=== PATIENT | male | born 1955 | race African-American/Black ===

== ENCOUNTER 2017-01-25 13:16 | Inpatient (IN) | payer BC ==
[~2017-01-25] VITALS: Ht 175.3 cm; Wt 76.3 kg
--- NOTE | 2017-01-25 13:30 | NUR ---
Admit Patient admitted to medical unit room 146 from 's office. Alert and oriented. Able to stand on own without assistance. Denies chest pain. States some shortness of air with activity. Admit process started.
[2017-01-25 13:37] VITALS: Ht 175.3 cm; Wt 76.3 kg
[2017-01-25 13:47] VITALS: BP 178/113; PULSE 99; RESP 22; TEMP 97.5; O2SAT 97
[2017-01-25 13:58] VITALS: PULSE 99
[2017-01-25 14:11] LABS: BASOPHILS % (AUTO) 0.2 % (0-2); EOSINOPHILS # (AUTO) 0.1 T/MM3 (0-0.5); EOSINOPHILS % (AUTO) 1.2 % (0-4); HCT - HEMATOCRIT 35.8 % (41-53); IMMATURE GRANULOCYTE # (AUTO) 0.01 T/MM3 (0.00-0.03); IMMATURE GRANULOCYTE % (AUTO) 0.2 % (0.0-0.5); LYMPHOCYTES # (AUTO) 1.3 T/MM3 (1-4.8); LYMPHOCYTES % (AUTO) 26.2 % (23-45); MEAN CORPUSCULAR HGB 25.6 UUG (26-34); MEAN CORPUSCULAR HGB CONC(MCHC 33.5 GM/DL (31-37); MEAN CORPUSCULAR VOLUME 76.5 UM3 (80-100); MONOCYTES # (AUTO) 0.5 T/MM3 (0-0.8); MONOCYTES % (AUTO) 9.6 % (0-9.0); NEUTROPHILS % (AUTO) 62.6 % (33-66); RED BLOOD COUNT 4.68 M/MM3 (4.50-5.90); WBC - WHITE BLOOD COUNT 4.8 T/MM3 (4.5-11.0)
--- NOTE | 2017-01-25 14:20 | DI ---
INDICATION: ITS.REASON: Pulmonary edema PROCEDURE: CHEST 2-VIEWS UPRIGHT (PA \T\ LAT) Encounter: Initial COMPARISON: None FINDINGS: Interstitial edema seen in the perihilar regions of both lungs. No focal consolidative pneumonia. Trace pleural effusions. No pneumothorax. The cardiac silhouette is mildly enlarged. Mediastinal contours are within normal limits. Overlying monitoring leads. Impression: Mild to moderate pulmonary edema. .
[2017-01-25 14:21] LABS: ALBUMIN/GLOBULIN RATIO 1.5 RATIO (1.1-2.2); ALKALINE PHOSPHATASE 146 U/L (38-126); ALT (SGPT) 106 U/L (21-72); ANION GAP 14 MEQ/L (5-15); AST (SGOT) 40 U/L (17-59); BUN/CREATININE RATIO 9 RATIO (6-26); CALCIUM 9.2 MG/DL (8.4-10.2); CHLORIDE 107 MEQ/L (98-107); CO2 - CARBON DIOXIDE 25 MEQ/L (22-30); CREATININE 1.6 MG/DL (0.8-1.5); GLOMERULAR FILTRATION RATE 44; GLUCOSE 119 MG/DL (75-110); MAGNESIUM 2.2 MG/DL (1.6-2.3); POTASSIUM 3.4 MEQ/L (3.6-5); SODIUM 146 MEQ/L (134-144); TOTAL PROTEIN 6.6 G/DL (6.3-8.2)
[2017-01-25] MEDS ORDERED: FUROSEMIDE 100 MG/10 ML INJECTION IV ONE (14:45)
[2017-01-25] MEDS ORDERED: POTASSIUM CHLORIDE 20 MEQ TABLET PO ONE ×2 (14:45→17:30)
[2017-01-25 14:51] LABS: THYROID STIM HORMONE-TSH 1.31 MIU/L (0.47-4.68)
[2017-01-25 15:24] VITALS: PULSE 99; RESP 16; O2SAT 97
--- NOTE | 2017-01-25 15:32 | HPPDOC ---
MARIA ISABEL VELASCO V WAGON WASHER 01/25/17 1516: HPI - Adult Date DATE: 01/25/17 TIME: 15:09 General Chief Complaint: dyspnea History of Present Illness Mr Dunlap is a 61 yr old gentleman who has been having increased shortness of breath since the middle of December. He had been seen by primary care provider on December 17 and completed a full course of Augmentin for upper respiratory infection. However, symptoms have not improved. He presented back to see his primary care provider, Dr. Dey today reporting increased shortness of breath , especially with lying down. As report increased coughing and wheezing at intermittently. Patient has a history of hypertension and was present previously taking hydrochlorothiazide, Norvasc and metoprolol. However, he reports he has not taken any of these medications recently. Outpatient laboratory studies were obtained including troponin of 0.017, proBNP 8010. A chest x-ray was obtained that did reveal moderate pulmonary edema and cardiomegaly. Given these findings, accompanied with his symptoms and uncontrolled hypertension. The hospitalist services were contacted and accepted patient for direct admission as an inpatient for further evaluation and treatment. He is alert, orientated and pleasant during initial examination. He admits to increased shortness of breath for a month . It is progressively getting worse, especially at night. 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 We did discuss advance directives and he does wish to be a Full Code Past Medical History Past Medical History Hypertension Surgical History Patient's Surgical History: Denies surgical hx Current Medications Home Meds No Active Prescriptions or Reported Meds Allergies: Coded Allergies: No Known Allergies (Unverified , 09/08/10) Family History Family History: Father-lung cancer Mother-hypertension, heart disease, diabetes Multiple siblings with diabetes Social History Smoking Status: Never smoker Substance Use Type: does not use Alcohol Intake: none Current Occupational Status: employed ([employer] plant) Advance Directives: Yes Full Code, No DPOA for Healthcare Only Social History Comments PCP Dr Dey Review of Systems Cardiovascular dyspnea on exertion, orthopnea Pulmonary Respiratory: cough, dyspnea All Other Systems All Other Systems: Reviewed (remainder of 10-point ROS Neg.) Physical Exam General Vital Signs Vital Signs Date Time Temp Pulse Resp B/P Pulse Ox O2 Delivery O2 Flow Rate FiO2 01/25/17 13:58 99 01/25/17 13:47 97.5 22 178/113 97 Room Air Height (Feet): 5 Height (Inches): 9.00 Eyes Brief: FOUND: EOMI ENMT Brief: FOUND: mucosa moist, normal dentition, NOT FOUND: pharnyx erythema Neck Brief: FOUND: JVD, midline, NOT FOUND: adenopathy, carotid bruits, tracheal deviation Respiratory Brief: NOT FOUND: wheezes Comments Diminished bilateral bases Cardiovascular (brief) Cardiac Brief: FOUND: pedal edema (trace bilateral), regular rate, regular rhythm, NOT FOUND: murmur Abdomen (brief) Abdominal Brief: FOUND: BS normo active x4, soft, NOT FOUND: distended, tender Integumentary (brief) Integumentary Brief: FOUND: dry, pink, warm Neurologic (brief) Neurological Brief: FOUND: cranial 2-12 intact, motor Neurologic RN Documented GCS Eye Opening: Verbal: Motor: Total: Psychiatric (brief) FOUND: alert, attentive, normal affect, oriented Laboratory Laboratory Tests Test 01/25/17 13:44 White Blood Count 4.8T/MM3 Red Blood Count 4.68M/MM3 Hemoglobin 12.0GM/DL Hematocrit 35.8% Mean Corpuscular Volume 76.5UM3 Mean Corpuscular Hemoglobin 25.6UUG Mean Corpuscular Hemoglobin Concent 33.5GM/DL RDW Standard Deviation 40.8FL Platelet Count 257T/MM3 Mean Platelet Volume 12.0UM3 Immature Granulocyte % (Auto) 0.2% Neutrophils (%) (Auto) 62.6% Lymphocytes (%) (Auto) 26.2% Monocytes (%) (Auto) 9.6% Eosinophils (%) (Auto) 1.2% Basophils (%) (Auto) 0.2% Absolute Immature Granulocyte (auto 0.01T/MM3 Absolute Neutrophils (auto) 3.0T/MM3 Absolute Lymphocytes (auto) 1.3T/MM3 Absolute Monocytes (auto) 0.5T/MM3 Absolute Eosinophils (auto) 0.1T/MM3 Absolute Basophils (auto) 0.0T/MM3 Turbidity < 20 Sodium Level 146MEQ/L Potassium Level 3.4MEQ/L Chloride Level 107MEQ/L Carbon Dioxide Level 25MEQ/L Anion Gap 14MEQ/L Blood Urea Nitrogen 14.0MG/DL Creatinine 1.6MG/DL Glomerular Filtration Rate Calc 44 BUN/Creatinine Ratio 9RATIO Glucose Level 119MG/DL Calculated Osmolality 283MOSM/KG Calcium Level 9.2MG/DL Magnesium Level 2.2MG/DL Total Bilirubin 1.50MG/DL Icterus Index < 2 Aspartate Amino Transf (AST/SGOT) 40U/L Alanine Aminotransferase (ALT/SGPT) 106U/L Alkaline Phosphatase 146U/L Total Protein 6.6G/DL Albumin 4.0G/DL Globulin 2.6G/DL Albumin/Globulin Ratio 1.5RATIO Thyroid Stimulating Hormone (TSH) 1.31MIU/L Chemistry Specimen Hemolysis < 15 Assessment & Plan Problems: (1) Pulmonary edema Status: Acute Qualifiers: Chronicity: acute Qualified Codes: J81.0 - Acute pulmonary edema (2) Hypernatremia Status: Acute (3) Uncontrolled hypertension Status: Acute Assessment & Plan: Present on admission (4) Hypokalemia Status: Acute Assessment & Plan: Present on admission (5) Cardiomegaly Status: Chronic Plan/Intensity of Service Admit patient as a inpatient given new onset pulmonary edema with uncontrolled hypertension and cardiomegaly Will obtain the following laboratory studies on admission. CBC, CMP, magnesium, TSH, urinalysis, HgbA1C, Iron and ferritin. will monitor patient on cardiac telemetry. Patient placed to Dr. Monroe for further cardiac evaluation and treatment. Will obtain an echocardiogram mission. Diet- sodium restricted 2 grams Will give Lasix 60 mg IV once on admission along with potassium 20 MEQ now. Then give additional 20 MEQ again at 1730. Resume hypertension medications including lisinopril, Coreg Monitor daily weights SCDs to Bilateral lower ext for DVT prophylaxis. Again, we did review advanced records and patient does wish to be a full code At time of discharge medical care will return to his primary care provider, Dr. Dey Code Status Full Code, unverified Hospital Course Summary Disclaimer The hospital course summary below is not to be considered part of the above Progress Note. Hospital Course Summary Admit patient as a inpatient given new onset pulmonary edema with uncontrolled hypertension and cardiomegaly Will obtain the following laboratory studies on admission. CBC, CMP, magnesium, TSH, urinalysis, Iron and ferritin. will monitor patient on cardiac telemetry. Patient placed to Dr. Monroe for further cardiac evaluation and treatment. Will obtain an echocardiogram mission. Diet- sodium restricted 2 grams Will give Lasix 60 mg IV once on admission along with potassium 20 MEQ now. Then give additional 20 MEQ again at 1730. Resume hypertension medications including lisinopril, Coreg Monitor daily weights SCDs to Bilateral lower ext for DVT prophylaxis. Again, we did review advanced records and patient does wish to be a full code At time of discharge medical care will return to his primary care provider, ROMELIA Ramos MD 01/25/17 1636: Past Medical History Current Medications Home Meds No Active Prescriptions or Reported Meds Allergies: Coded Allergies: No Known Allergies (Unverified , 09/08/10) Assessment & Plan Problems: (1) Pulmonary edema Status: Acute Qualifiers: Chronicity: acute Qualified Codes: J81.0 - Acute pulmonary edema (2) Cardiomyopathy Status: Acute Qualifiers: Cardiomyopathy type: unspecified Qualified Codes: I42.9 - Cardiomyopathy, unspecified (3) Cardiomegaly Status: Chronic (4) Uncontrolled hypertension Status: Acute Assessment & Plan: Present on admission (5) Hypernatremia Status: Acute (6) Hypokalemia Status: Acute Assessment & Plan: Present on admission (7) Elevated liver enzymes Status: Acute Assessment & Plan: ? passive liver congestion due to CHF (8) Anemia Status: Acute Plan/Intensity of Service Have independently interviewed and examined pt. Chart reviewed. Case discussed with Dr Dey and my WAGON WASHER. Care plan developed with my supervision; agree with above. CC: Difficulty breathing. HPI: 61 y/o male presents to clinic for evaluation of dyspnea. Has been SOA since December - seen in clinic and treated from bronchial symptoms but no improvement with treatments initiated. SOA with activities. Not able to lay flat at night to sleep as becomes SOA. Denies increase LE edema. No recent viral syndrome. Denies chest pressure, pain, or palpitations. Has cough, nonproductive. No n/v, but appetite decreased. Stools stable, no diarrhea or constipation. No blood in stool or tarry dark sticky stools. Long standing HTN, but not been adherent with medications. Not currently on any BP medications. Lungs: decreased, scattered crackles CV: regular with GOLDY AB: soft nt/nd +BS Ext: trace LE edema MSE: awake alert appropriate Plan: Inpatient admission for further evaluation and treatment of his pulmonary edema and cardiomegaly-anticipate greater than 2 midnights of care needed. ECHO to assess LVEF and valve function. Lasix to help motivate fluid. Replace potassium. Start Coreg and lisinopril as suspect Decreased EF. Cardiology consult due to new onset of CHF. SCD for DVT prevention. Check Iron and Ferritin due to microcytic anemia. Monitor lab due to diuretics and medications. DVT Prophylaxis: SCD'S MARIA ISABEL VELASCO APRN January 25, 2017 15:16 ROMELIA VASQUEZ MD January 25, 2017 16:36
--- NOTE | 2017-01-25 16:05 | CONSPD ---
Consultation Info Date DATE: 01/25/17 TIME: 15:51 Date of Consultation: January 25, 2017 Attending Physician: Santhosh Weir MD Reason for Consultation: Cardiomegaly, uncontrolled HTN HPI - Adult Date DATE: 01/25/17 TIME: 15:51 General Date of Admission Date of Admission: January 25, 2017 at 13:16 Chief Complaint: dyspnea History of Present Illness Mr Dunlap is a 61 yr old gentleman who has been having increased shortness of breath since the middle of December. He had been seen by primary care provider on December 17 and completed a full course of Augmentin for upper respiratory infection. However, symptoms have not improved. He presented back to see his primary care provider, Dr. Dey today reporting increased shortness of breath , especially with lying down. As report increased coughing and wheezing intermittently. He has a history of hypertension and was previously taking hydrochlorothiazide, Norvasc and metoprolol. However, he reports he has not taken any of these medications recently. Outpatient laboratory studies were obtained including troponin of 0.017, proBNP 8010. A chest x-ray was obtained that did reveal moderate pulmonary edema and cardiomegaly. Given these findings , accompanied with his symptoms and uncontrolled hypertension. The hospitalist services were contacted and accepted patient for direct admission as an inpatient for further evaluation and treatment. Dr. Monroe is consulted for evaluation of Cardiomegaly. He is examined in his room on Medical. He denies recent fever, chills, N/V/D. He denies chest pain, pressure or tightness. States his dyspnea is worse on exertion and when laying flat. Past Medical History Past Medical History Metabolic: hypertension, DENIES: diabetes, hypercholesterolemia Cardiac: DENIES: A-fib, CAD, CHF, RI, PSVT, angina Respiratory: DENIES: COPD, asthma Neurological: DENIES: CVA Surgical History Cardiac: DENIES: cardiac bypass, cardiac cath, cardiac stent, pacemaker, radio ablation, valve replacement Current Medications Home Meds No Active Prescriptions or Reported Meds Allergies: Coded Allergies: No Known Allergies (Unverified , 09/08/10) Family History FOUND: RI (brother), cancer (father), diabetes (mother), hypertension Vaccines No Social History Smoking Status: Never smoker Substance Use Type: does not use Alcohol Intake: occasionally Marital Status: Sexuality: female partner 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) Advance Directives: Yes Full Code, No DPOA for Healthcare Only Review of Systems Constitutional: DENIES: chills, dizziness, fatigue, fever, syncope, weakness Eyes Vision: DENIES: vision changes ENMT Hearing: DENIES: tinnitus Balance: DENIES: vertigo Sinuses: NOT FOUND: rhinorrhea Mouth/Throat: DENIES: sore throat Cardiovascular dyspnea on exertion, orthopnea, paroxysmal nocturnal dysp, DENIES: chest pain, murmur Rhythm/Rate: DENIES: irregular beat, palpitations, tachycardia Vascular: DENIES: pedal edema Pulmonary Respiratory: cough GI Upper Abdomen: DENIES: nausea, vomiting Lower Abdomen: DENIES: diarrhea General: DENIES: dysuria Integumentary Skin: DENIES: rash, sores Neurological General: DENIES: headache, numbness, syncope, weakness All Other Systems All Other Systems: Reviewed (remainder of 10-point ROS Neg.) Physical Exam General General Nourishment: well nourished, well developed, apparent age Vital Signs Vital Signs Date Time Temp Pulse Resp B/P Pulse Ox O2 Delivery O2 Flow Rate FiO2 01/25/17 15:24 99 16 97 Room Air 01/25/17 13:47 97.5 178/113 Height (Feet): 5 Height (Inches): 9.00 Telemetry Rhythm: Sinus Rhythm Telemetry Ectopy: PVC ENMT Brief: FOUND: mucosa moist Neck Brief: FOUND: JVD, NOT FOUND: carotid bruits Respiratory Brief: FOUND: clear all harper, equal bilaterally, NOT FOUND: rales , wheezes Cardiovascular (brief) Cardiac Brief: FOUND: regular rate, regular rhythm, NOT FOUND: click, gallop, murmur, pedal edema Abdomen (brief) Abdominal Brief: FOUND: BS normo active x4, soft, NOT FOUND: tender Neurologic RN Documented GCS Eye Opening: Verbal: Motor: Total: Psychiatric (brief) FOUND: alert, attentive, normal affect, oriented Laboratory Laboratory Tests Test 01/25/17 13:44 White Blood Count 4.8T/MM3 Red Blood Count 4.68M/MM3 Hemoglobin 12.0GM/DL Hematocrit 35.8% Mean Corpuscular Volume 76.5UM3 Mean Corpuscular Hemoglobin 25.6UUG Mean Corpuscular Hemoglobin Concent 33.5GM/DL RDW Standard Deviation 40.8FL Platelet Count 257T/MM3 Mean Platelet Volume 12.0UM3 Immature Granulocyte % (Auto) 0.2% Neutrophils (%) (Auto) 62.6% Lymphocytes (%) (Auto) 26.2% Monocytes (%) (Auto) 9.6% Eosinophils (%) (Auto) 1.2% Basophils (%) (Auto) 0.2% Absolute Immature Granulocyte (auto 0.01T/MM3 Absolute Neutrophils (auto) 3.0T/MM3 Absolute Lymphocytes (auto) 1.3T/MM3 Absolute Monocytes (auto) 0.5T/MM3 Absolute Eosinophils (auto) 0.1T/MM3 Absolute Basophils (auto) 0.0T/MM3 Turbidity < 20 Sodium Level 146MEQ/L Potassium Level 3.4MEQ/L Chloride Level 107MEQ/L Carbon Dioxide Level 25MEQ/L Anion Gap 14MEQ/L Blood Urea Nitrogen 14.0MG/DL Creatinine 1.6MG/DL Glomerular Filtration Rate Calc 44 BUN/Creatinine Ratio 9RATIO Glucose Level 119MG/DL Calculated Osmolality 283MOSM/KG Calcium Level 9.2MG/DL Magnesium Level 2.2MG/DL Total Bilirubin 1.50MG/DL Icterus Index < 2 Aspartate Amino Transf (AST/SGOT) 40U/L Alanine Aminotransferase (ALT/SGPT) 106U/L Alkaline Phosphatase 146U/L Total Protein 6.6G/DL Albumin 4.0G/DL Globulin 2.6G/DL Albumin/Globulin Ratio 1.5RATIO Thyroid Stimulating Hormone (TSH) 1.31MIU/L Chemistry Specimen Hemolysis < 15 Laboratory Tests Test 01/25/17 13:44 White Blood Count 4.8T/MM3 Red Blood Count 4.68M/MM3 Hemoglobin 12.0GM/DL Hematocrit 35.8% Mean Corpuscular Volume 76.5UM3 Mean Corpuscular Hemoglobin 25.6UUG Mean Corpuscular Hemoglobin Concent 33.5GM/DL RDW Standard Deviation 40.8FL Platelet Count 257T/MM3 Mean Platelet Volume 12.0UM3 Immature Granulocyte % (Auto) 0.2% Neutrophils (%) (Auto) 62.6% Lymphocytes (%) (Auto) 26.2% Monocytes (%) (Auto) 9.6% Eosinophils (%) (Auto) 1.2% Basophils (%) (Auto) 0.2% Absolute Immature Granulocyte (auto 0.01T/MM3 Absolute Neutrophils (auto) 3.0T/MM3 Absolute Lymphocytes (auto) 1.3T/MM3 Absolute Monocytes (auto) 0.5T/MM3 Absolute Eosinophils (auto) 0.1T/MM3 Absolute Basophils (auto) 0.0T/MM3 Turbidity < 20 Sodium Level 146MEQ/L Potassium Level 3.4MEQ/L Chloride Level 107MEQ/L Carbon Dioxide Level 25MEQ/L Anion Gap 14MEQ/L Blood Urea Nitrogen 14.0MG/DL Creatinine 1.6MG/DL Glomerular Filtration Rate Calc 44 BUN/Creatinine Ratio 9RATIO Glucose Level 119MG/DL Calculated Osmolality 283MOSM/KG Calcium Level 9.2MG/DL Magnesium Level 2.2MG/DL Total Bilirubin 1.50MG/DL Icterus Index < 2 Aspartate Amino Transf (AST/SGOT) 40U/L Alanine Aminotransferase (ALT/SGPT) 106U/L Alkaline Phosphatase 146U/L Total Protein 6.6G/DL Albumin 4.0G/DL Globulin 2.6G/DL Albumin/Globulin Ratio 1.5RATIO Thyroid Stimulating Hormone (TSH) 1.31MIU/L Chemistry Specimen Hemolysis < 15 Radiology DATE OF EXAM: 01/25/17 ORDERING DOCTOR: SANTHOSH WEIR MD TYPE OF EXAM: CHEST, PA & LATERAL REASON FOR EXAM: Pulmonary edema INDICATION: ITS.REASON: Pulmonary edema PROCEDURE: CHEST 2-VIEWS UPRIGHT (PA \T\ LAT) Encounter: Initial COMPARISON: None FINDINGS: Interstitial edema seen in the perihilar regions of both lungs. No focal consolidative pneumonia. Trace pleural effusions. No pneumothorax. The cardiac silhouette is mildly enlarged. Mediastinal contours are within normal limits. Overlying monitoring leads. Impression: Mild to moderate pulmonary edema. Impression/Recommendation Problems: (1) Cardiomyopathy Status: Acute Assessment & Plan: EF 15% per echo, moderate to severe MR and TR. Needs diuresis and LifeVest. (2) Pulmonary edema Status: Acute Assessment & Plan: Agree with diuresis. Bumex 2mg IV Q6H. (3) Uncontrolled hypertension Status: Acute Assessment & Plan: Agree with BB, Change Lisinopril to Entresto. (4) Cardiomegaly Status: Chronic Assessment & Plan: EF 15% per echo, moderate to severe MR and TR. Needs diuresis and LifeVest. Recommendation Pulm.edema: Agree with diuresis. Bumex 2mg IV Q6H. HTN:Agree with BB, Change Lisinopril to Entresto. Cardiomegaly/ Cardiomyopathy: EF 15% per echo, moderate to severe MR and TR. Needs diuresis and LifeVest. Thank you for allowing us to participate in the care of this patient. MICHAEL BRICEÑO APRN January 25, 2017 15:56
[2017-01-25] MEDS ORDERED: NITROGLYCERIN 0.4 MG SUBLINGUAL TABLET SL PRN (16:15)
[2017-01-25] MEDS ORDERED: MAG-AL + SIM LIQUID 30 ML UDC PO PRN (16:15)
[2017-01-25] MEDS ORDERED: PRN ORDERS MC (16:15)
[2017-01-25] MEDS ORDERED: ONDANSETRON 4mg/2ml INJECTION IV PRN (16:15)
[2017-01-25] MEDS ORDERED: MILK OF MAGNESIA 30 ML SUSP PO PRN (16:15)
[2017-01-25] MEDS ORDERED: ACETAMINOPHEN 325 MG TABLET PO PRN (16:15)
[2017-01-25] MEDS ORDERED: BISACODYL 10 MG SUPPOSITORY RECTALLY PRN (16:15)
[2017-01-25] MEDS: CARVEDILOL 3.125 MG TABLET PO SCH (17:17)
[2017-01-25] MEDS: ENOXAPARIN 40 MG/0.4 ML INJECTION SQ SCH (18:26)
[2017-01-25] MEDS: POTASSIUM CHLORIDE 20 MEQ TABLET PO SCH (18:27)
--- NOTE | 2017-01-25 18:38 | NUR ---
SUMMARY PATIENT ALERT AND ORIENTED X3. VSS. ON RA. DENIES PAIN, N/V/D. UP AD KUSH IN ROOM. SIGNIFICANT URINE OUTPUT AFTER LASIX GIVEN. SEVERAL VOIDS UNMEASURED BECAUSE PATIENT FORGOT TO USE URINAL. SCD'S IN PLACE WHILE IN BED. ADEQUATE ORAL INTAKE. IVL RIGHT FOREARM. FAMILY PRESENT AT BEDSIDE.
[2017-01-25] MEDS ORDERED: FUROSEMIDE 40 MG/4 ML INJECTION IV ONE (19:00)
[2017-01-25 20:00] VITALS: PULSE 99; RESP 16
[2017-01-25] MEDS: BUMETANIDE 1 MG/4 ML INJECTION IV SCH (21:00)
[2017-01-25] MEDS ORDERED: LISINOPRIL 5 MG TABLET PO SCH (22:00)
[2017-01-25 23:43] VITALS: BP 128/83; PULSE 85; RESP 24; TEMP 98; O2SAT 92
[2017-01-26] MEDS: BUMETANIDE 1 MG/4 ML INJECTION IV SCH (03:47)
--- NOTE | 2017-01-26 05:05 | NUR ---
SHIFT SUMMARY PT A/O X 3, PLEASANT AND COOPERATIVE WITH CARES. UP AT KUSH. NO VOIDS WERE MEASURED BECAUSE THE PT FORGOT TO USE THE URINAL. PT STATED HE DID VOID 4 TIMES. DENIES PAIN, SOA OR CHEST PAIN. IV SITE INTACT AND FLUSHED WITHOUT DIFFICULT.
[2017-01-26 05:19] LABS: BASOPHILS % (AUTO) 0.5 % (0-2); EOSINOPHILS # (AUTO) 0.2 T/MM3 (0-0.5); EOSINOPHILS % (AUTO) 3.7 % (0-4); HCT - HEMATOCRIT 35.9 % (41-53); HGB - HEMOGLOBIN 12.2 GM/DL (13.5-17.5); LYMPHOCYTES # (AUTO) 1.5 T/MM3 (1-4.8); LYMPHOCYTES % (AUTO) 35.9 % (23-45); MEAN CORPUSCULAR HGB 25.8 UUG (26-34); MEAN CORPUSCULAR VOLUME 76.1 UM3 (80-100); MEAN PLATELET VOLUME 12.1 UM3 (9.4-12.4); MONOCYTES # (AUTO) 0.5 T/MM3 (0-0.8); MONOCYTES % (AUTO) 10.5 % (0-9.0); NEUTROPHILS #(AUTO)-ABSOLUTE 2.1 T/MM3 (1.8-7.7); NEUTROPHILS % (AUTO) 49.4 % (33-66); RED BLOOD COUNT 4.72 M/MM3 (4.50-5.90); WBC - WHITE BLOOD COUNT 4.3 T/MM3 (4.5-11.0)
[2017-01-26 05:28] LABS: ANION GAP 13 MEQ/L (5-15); BUN/CREATININE RATIO 11 RATIO (6-26); CALCIUM 8.9 MG/DL (8.4-10.2); CHLORIDE 106 MEQ/L (98-107); CO2 - CARBON DIOXIDE 26 MEQ/L (22-30); CREATININE 1.7 MG/DL (0.8-1.5); GLOMERULAR FILTRATION RATE 41; GLUCOSE 112 MG/DL (75-110); MAGNESIUM 2.1 MG/DL (1.6-2.3); POTASSIUM 3.4 MEQ/L (3.6-5); SODIUM 145 MEQ/L (134-144)
[2017-01-26 08:01] VITALS: BP 143/92; PULSE 83; RESP 28; TEMP 97.7; O2SAT 96
[2017-01-26 08:04] VITALS: RESP 28
--- NOTE | 2017-01-26 08:07 | NUR ---
STATUS PT ALERT AND ORIENTED. VITALS OBTAINED AND STABLE CHARTED WITH RESPIRATIONS NOTED TO BE 28/MINUTE. PT REPORTS BEING SHORT OF BREATH ON ADMIT BUT STATES HE FEELS BETTER TODAY, DENIES SHORTNESS OF BREATH AT THIS TIME. O2 SAT 96% ROOM AIR. PT DENIES PAIN OR ANY CHEST DISCOMFORT. PT ORDERS BREAKFAST. WILL CONTINUE TO MONITOR.
[2017-01-26] MEDS ORDERED: FUROSEMIDE 40 MG/4 ML INJECTION IV SCH (09:00)
[2017-01-26] MEDS: BUMETANIDE 2.5mg INJECTION IV SCH ×3 (09:15→17:15)
[2017-01-26] MEDS: POTASSIUM CHLORIDE 20 MEQ TABLET PO SCH ×3 (09:15→17:16)
[2017-01-26] MEDS: CARVEDILOL 3.125 MG TABLET PO SCH ×2 (09:15→17:16)
[2017-01-26] MEDS: ENOXAPARIN 40 MG/0.4 ML INJECTION SQ SCH (09:16)
--- NOTE | 2017-01-26 09:34 | ECHOF ---
DATE OF PROCEDURE 01/25/[address] Jersey Dey INDICATIONS This is a two-dimensional echo with spectral Doppler, color-flow, and M-mode. It was obtained in a patient with hypertension. DESCRIPTION OF PROCEDURE Left atrium is dilated. Left ventricular end-diastolic dimension is increased. Left ventricular wall thickness is increased. LV systolic function is reduced with global hypokinesia with ejection fraction of about 15%. Right atrium is dilated. Right ventricle is normal. Aortic root dimension is normal. Mitral valve is morphologically normal with severe mitral regurgitation. Aortic valve is a trileaflet structure with no stenosis. There is no aortic insufficiency. Tricuspid valve shows [id number] tricuspid regurgitation with mzngyeig-mn-mzybtd pulmonary hypertension with estimated pulmonary artery systolic pressure of 66. Pulmonary valve shows mild pulmonary insufficiency. There is trace of pericardial effusion with no echocardiographic evidence of tamponade. IMPRESSION 1. Global hypokinesia with ejection fraction of 15%. 2. Concentric left ventricular hypertrophy. 3. Biatrial dilation. 4. Left ventricular dilation. 5. Mild pulmonary insufficiency. 6. Severe mitral regurgitation. 7. [id number] tricuspid regurgitation with gioddwio-[id number] pulmonary hypertension with estimated pulmonary artery systolic pressure of 66. 8. Trace of pericardial effusion with no echocardiographic evidence of tamponade. MTDD
--- NOTE | 2017-01-26 11:16 | PNPDOC ---
Subjective Date DATE: 01/26/17 TIME: 11:02 Subjective F/U: Acute systolic HF, Severe cardiomyopathy Doing better. Breathing feels easier-less SOA. No chest pressure, pain, or palpitations. Not feeling dizzy or unsteady when up. Slept well at night. No nausea or ab pain. Eating well. No swelling to legs. Urinating well. Objective Vital Signs Vital signs Vital Signs Date Time Temp Pulse Resp B/P Pulse Ox O2 Delivery O2 Flow Rate FiO2 01/26/17 08:04 28 01/26/17 08:01 97.7 83 143/92 96 Room Air Telemetry Rhythm: Sinus Rhythm Telemetry Ectopy: PVC Height (Feet): 5 Height (Inches): 9.00 Weight (Kilograms): 76.400 General General Appearance: Alert, Orientated x 3, Well Nourished, Well Developed, Cooperative, Looks Stated Age Eyes (Brief) Eyes: FOUND: EOMI, PERRL, NOT FOUND: scleral icterus ENMT (Brief) ENMT: FOUND: hearing intact, mucosa moist Neck (Brief) Neck: FOUND: midline, NOT FOUND: JVD, nuchal rigidity, spasm Respiratory (Brief) Respiratory: FOUND: clear all harper, equal bilaterally, other (No distress on RA ), NOT FOUND: rales, wheezes Cardiovascular (Brief) Cardiac: FOUND: regular rate, regular rhythm, NOT FOUND: pedal edema Abdomen (Brief) Abdominal: FOUND: BS normo active x4, soft, NOT FOUND: distended, tender Extremities (Brief) Extremity : Side: Bilateral Extremity: leg Extremity Finding: NOT FOUND: edema Musculoskeletal (Brief) Musculoskeletal: FOUND: extremities move equally, NOT FOUND: deformity, loss of motion, spasm, tenderness Integumentary (Brief) Integumentary: FOUND: dry, warm Neurologic (Brief) Neurological: FOUND: cranial 2-12 intact, motor (Intact ) Psychiatric (Brief) Psychiatric: FOUND: alert, attentive, normal affect, oriented Laboratory Laboratory Laboratory Tests 01/25/17 13:44 01/26/17 04:24 Laboratory Tests 01/25/17 13:44 01/26/17 04:24 Assessment & Plan Problems: (1) Systolic heart failure Status: Acute Qualifiers: Heart failure chronicity: acute Qualified Codes: I50.21 - Acute systolic ( congestive) heart failure Assessment & Plan: EF 15% (2) Cardiomyopathy Status: Acute Qualifiers: Cardiomyopathy type: unspecified Qualified Codes: I42.9 - Cardiomyopathy, unspecified (3) Pulmonary edema Status: Acute Qualifiers: Chronicity: acute Qualified Codes: J81.0 - Acute pulmonary edema (4) Cardiomegaly Status: Chronic (5) Uncontrolled hypertension Status: Acute Assessment & Plan: Present on admission (6) Hypernatremia Status: Acute Assessment & Plan: POA (7) Hypokalemia Status: Acute Assessment & Plan: Present on admission (8) Elevated liver enzymes Status: Acute Assessment & Plan: ? passive liver congestion due to CHF (9) Anemia Status: Acute Plan/Intensity of Service Will continue Bumex 2mg IV q 6 hours - monitor for overdiuresis. Start Spironolactone 25mg daily due to hypokalemia and depressed EF. Entresto started BID by cardilolgy due to severe heart failure - lisinopril stopped due to ARB component. Continue with Coreg 3.125mg BID. Cardiology looking into Life Vest secondary to severely decreased EF. Recheck CMP in am to monitor renal and electrolyte status. CBC in am due to anemia. Time spent with pt care 25 minutes, discussing HF and treatments. DVT Prophylaxis: Lovenox Code Status Full Code, unverified Hospital Course Summary Disclaimer The hospital course summary below is not to be considered part of the above Progress Note. Hospital Course Summary 01/25 Admit patient as a inpatient given new onset pulmonary edema with uncontrolled hypertension and cardiomegaly Will obtain the following laboratory studies on admission. CBC, CMP, magnesium, TSH, urinalysis, Iron and ferritin. will monitor patient on cardiac telemetry. Patient placed to Dr. Monroe for further cardiac evaluation and treatment. Will obtain an echocardiogram mission. Diet- sodium restricted 2 grams Will give Lasix 60 mg IV once on admission along with potassium 20 MEQ now. Then give additional 20 MEQ again at 1730. Resume hypertension medications including lisinopril, Coreg Monitor daily weights SCDs to Bilateral lower ext for DVT prophylaxis. Again, we did review advanced records and patient does wish to be a full code At time of discharge medical care will return to his primary care provider, Dr. Dey 01/26 Doing better. Breathing feels easier-less SOA. No chest pressure, pain, or palpitations. Not feeling dizzy or unsteady when up. Slept well at night. No nausea or ab pain. Eating well. No swelling to legs. Urinating well. Creatinine stable at 1.7. Urine output increasing with Bumex. Will continue Bumex 2mg IV q 6 hours - monitor for overdiuresis. Start Spironolactone 25mg daily due to hypokalemia and depressed EF. Entresto started BID by cardilolgy due to severe heart failure - lisinopril stopped due to ARB component. Continue with Coreg 3.125mg BID. Cardiology looking into Life Vest secondary to severely decreased EF. Recheck CMP in am to monitor renal and electrolyte status. CBC in am due to anemia. ROMELIA VASQUEZ MD January 26, 2017 11:05
[2017-01-26] MEDS: SPIRONOLACTONE 25 MG TABLET PO SCH (12:35)
[2017-01-26 12:37] VITALS: BP 122/86; PULSE 79
--- NOTE | 2017-01-26 13:46 | NUR ---
CM CM IN TO VISIT PT. CM EXPLAINED ROLE AND PROVIDED CONTACT INFORMATION. PT DENIES NEEDS AND IS AWARE TO CALL CM SHOULD NEEDS ARISE.
--- NOTE | 2017-01-26 14:47 | PNPDOC ---
Subjective Date DATE: 01/26/17 TIME: 14:44 Subjective feeling better today. Can breathe better Objective Vital Signs Vital signs Vital Signs 01/26/17 01/26/17 01/26/17 08:01 08:04 12:37 Temp 97.7 Pulse 83 79 Resp 28 28 B/P 143/92 122/86 Pulse Ox 96 O2 Delivery Room Air Telemetry Rhythm: Sinus Rhythm Telemetry Ectopy: PVC Height (Feet): 5 Height (Inches): 9.00 Weight (Kilograms): 76.400 General Alert, Orientated x 3 Neck (Brief) NOT FOUND: JVD Respiratory (Brief) clear all harper, equal bilaterally Cardiovascular (Brief) regular rate, regular rhythm, NOT FOUND: pedal edema Abdomen (Brief) soft Extremities (Brief) Extremity : Extremity Finding: NOT FOUND: edema Musculoskeletal (Brief) NOT FOUND: tenderness Integumentary (Brief) dry, pink, warm Psychiatric (Brief) alert, attentive, normal affect, oriented Laboratory Laboratory Laboratory Tests 01/26/17 04:24 Laboratory Tests 01/26/17 04:24 Medications Current Medications Carvedilol (Coreg) 3.125 mg BIDWM PO Last administered on 01/26/17t 09:15; Start 01/25/17 at 17:30 Lisinopril (Prinivil) 5 mg HS PO ; Start 01/25/17 at 22:00; Stop 01/25/17 at 22: 00; Status DC Miscellaneous Medication (May use PRN orders) PRN PRN MC ; Start 01/25/17 at 16:15 Magnesium Hydroxide (Mom) 30 ml DAILY PRN PO CONSTIPATION; Start 01/25/17 at 16 :15 Bisacodyl (Dulcolax) 10 mg DAILY PRN RECTALLY CONSTIPATION; Start 01/25/17 at 16:15 Al Hydroxide/Mg Hydroxide (Maalox) 30 ml Q3H PRN PO INDIGESTION; Start at 16:15 Acetaminophen (Tylenol Regular Strength) 1-2 TABS PO Q5H PRN PO DISCOMFORT; Start 01/25/17 at 16:15 Nitroglycerin (Nitrostat) 0.4 mg Q5M PRN SL CHEST PAIN; Start 01/25/17 at 16:15 Ondansetron HCl (Zofran) 4 mg Q6H PRN IV NAUSEA; Start 01/25/17 at 16:15 Furosemide (Lasix) 40 mg BID. IV ; Start 01/26/17 at 09:00; Stop 01/26/17 at 09: 00; Status DC Sacubitril/ Valsartan (ENTRESTO 24mg/ 26mg) 1 tab BID PO Last administered on 09:16; Start 01/25/17 at 21:00 Bumetanide (BUMEX INJ 1 mg/ 4 ml) 2 mg Q6H IV Last administered on 01/26/17 03 :47; Start 01/25/17 at 21:00; Stop 01/26/17 at 08:41; Status DC Potassium Chloride (Kdur) 20 meq TIDWM PO Last administered on 01/26/17 12:35 ; Start 01/25/17 at 17:45 Enoxaparin Sodium (Lovenox) 40 mg DAILY SQ Last administered on 01/26/17 09:16 ; Start 01/25/17 at 17:45 Bumetanide (Bumex Inj. 2.5 Mg/10 ml) 2 mg Q6H IV Last administered on 09:15; Start 01/26/17 at 08:45 Spironolactone (Aldactone) 25 mg DAILY PO Last administered on 01/26/17 12:35 ; Start 01/26/17 at 11:00 Assessment & Plan Problems: (1) Cardiomyopathy Status: Acute Qualifiers: Cardiomyopathy type: unspecified Qualified Codes: I42.9 - Cardiomyopathy, unspecified Assessment & Plan: EF 15% per echo, moderate to severe MR and TR. Needs diuresis and LifeVest. (2) Pulmonary edema Status: Acute Qualifiers: Chronicity: acute Qualified Codes: J81.0 - Acute pulmonary edema Assessment & Plan: Agree with diuresis. Bumex 2mg IV Q6H. (3) Uncontrolled hypertension Status: Acute Assessment & Plan: Agree with BB, Change Lisinopril to Entresto. (4) Cardiomegaly Status: Chronic Assessment & Plan: EF 15% per echo, moderate to severe MR and TR. Needs diuresis and LifeVest. Assessment Pulm.edema: Agree with diuresis. Bumex 2mg IV Q6H. HTN:Agree with BB, Change Lisinopril to Entresto. Cardiomegaly/ Cardiomyopathy: EF 15% per echo, moderate to severe MR and TR. Needs diuresis and LifeVest. 01-26-17 States he is breathing better. CXR ordered. Continue IV bumex. Thank you for allowing us to participate in the care of this patient. JEISON BOYCE COATER OPERATOR INSULATION BOARD January 26, 2017 14:47
[2017-01-26 15:19] LABS: ALBUMIN 3.9 G/DL (3.5-5.0); ALBUMIN/GLOBULIN RATIO 1.6 RATIO (1.1-2.2); ALKALINE PHOSPHATASE 126 U/L (38-126); ALT (SGPT) 85 U/L (21-72); ANION GAP 12 MEQ/L (5-15); AST (SGOT) 29 U/L (17-59); BUN/CREATININE RATIO 11 RATIO (6-26); CALCIUM 9.2 MG/DL (8.4-10.2); CHLORIDE 102 MEQ/L (98-107); CO2 - CARBON DIOXIDE 30 MEQ/L (22-30); CREATININE 1.7 MG/DL (0.8-1.5); GLOMERULAR FILTRATION RATE 41; GLUCOSE 94 MG/DL (75-110); MAGNESIUM 2.1 MG/DL (1.6-2.3); POTASSIUM 3.7 MEQ/L (3.6-5); SODIUM 144 MEQ/L (134-144); TOTAL PROTEIN 6.4 G/DL (6.3-8.2)
[2017-01-26 15:36] VITALS: BP 120/87; PULSE 82; RESP 17; TEMP 98; O2SAT 95
--- NOTE | 2017-01-26 15:54 | NUR ---
Life Vest [employer] calls that pt is approved for a life vest and that they will be here on 01/27 at approximately 1100 to bring life vest and educate pt. This information is given to the pt. Pt also informed that if he wants family here for the education as well that is fine. Pt verbalizes understanding.
[2017-01-26 17:17] VITALS: BP 129/91; PULSE 80
[2017-01-26 18:11] VITALS: BP 135/91; PULSE 81
--- NOTE | 2017-01-26 18:18 | NUR ---
V TACH PT HAS 19 BEAT RUN OF V TACH. PT DENIES C/O'S. DENIES ANY INCREASED SHORTNESS OF BREATH, CHEST DISCOMFORT, OR DIZZINESS. BP 135/91. HR IN THE 80'S. THIS IS REPORTED TO Liam BOYCE APRN, ALONG WITH CURRENT LABS. NEW ORDER TO BE IMPLEMENTED. WILL CONTINUE TO MONITOR.
[2017-01-26] MEDS ORDERED: POTASSIUM CHLORIDE 20 MEQ TABLET PO ONE (18:30)
[2017-01-26] MEDS ORDERED: CARVEDILOL 3.125 MG TABLET PO ONE (18:45)
--- NOTE | 2017-01-26 18:52 | NUR ---
STATUS PT SITTING UP IN CHAIR. VISITORS PRESENT. VITALS STABLE. NO CONCERNS AT THIS TIME.
[2017-01-27 01:07] VITALS: BP 112/65; PULSE 72; RESP 20; TEMP 97.4; O2SAT 94
[2017-01-27] MEDS: BUMETANIDE 2.5mg INJECTION IV SCH ×3 (01:14→17:49)
[2017-01-27 05:18] LABS: BASOPHILS % (AUTO) 0.8 % (0-2); EOSINOPHILS # (AUTO) 0.1 T/MM3 (0-0.5); EOSINOPHILS % (AUTO) 3.3 % (0-4); HGB - HEMOGLOBIN 13.6 GM/DL (13.5-17.5); IMMATURE GRANULOCYTE # (AUTO) 0.01 T/MM3 (0.00-0.03); IMMATURE GRANULOCYTE % (AUTO) 0.3 % (0.0-0.5); LYMPHOCYTES # (AUTO) 1.5 T/MM3 (1-4.8); LYMPHOCYTES % (AUTO) 40.3 % (23-45); MEAN CORPUSCULAR HGB 25.6 UUG (26-34); MEAN CORPUSCULAR VOLUME 75.2 UM3 (80-100); MONOCYTES # (AUTO) 0.5 T/MM3 (0-0.8); MONOCYTES % (AUTO) 13.1 % (0-9.0); NEUTROPHILS #(AUTO)-ABSOLUTE 1.6 T/MM3 (1.8-7.7); NEUTROPHILS % (AUTO) 42.2 % (33-66); RED BLOOD COUNT 5.32 M/MM3 (4.50-5.90); WBC - WHITE BLOOD COUNT 3.7 T/MM3 (4.5-11.0)
[2017-01-27 05:30] LABS: ALBUMIN 3.8 G/DL (3.5-5.0); ALBUMIN/GLOBULIN RATIO 1.6 RATIO (1.1-2.2); ALKALINE PHOSPHATASE 135 U/L (38-126); ALT (SGPT) 85 U/L (21-72); ANION GAP 13 MEQ/L (5-15); AST (SGOT) 27 U/L (17-59); BUN/CREATININE RATIO 13 RATIO (6-26); CALCIUM 9.1 MG/DL (8.4-10.2); CHLORIDE 103 MEQ/L (98-107); CO2 - CARBON DIOXIDE 27 MEQ/L (22-30); CREATININE 1.6 MG/DL (0.8-1.5); GLOMERULAR FILTRATION RATE 44; GLUCOSE 104 MG/DL (75-110); POTASSIUM 3.5 MEQ/L (3.6-5); SODIUM 143 MEQ/L (134-144); TOTAL PROTEIN 6.2 G/DL (6.3-8.2)
[2017-01-27 08:00] VITALS: PULSE 79
[2017-01-27 08:08] LABS: BLOOD, URINE NEGATIVE (NEGATIVE); COLOR,URINE YELLOW (YELLOW); LEUKOCYTE ESTERASE ,URINE NEGATIVE (NEGATIVE); NITRITE,URINE NEGATIVE (NEGATIVE); UROBILINOGEN,URINE 0.2 EU/DL (NORMAL)
[2017-01-27 08:17] LABS: BACTERIA,URINE NONE SEEN (NEGATIVE); RBC,URINE 0-1 /HPF (0-3); SQUAMOUS EPITHELIAL CELL,UR NONE SEEN; WBC,URINE 0-1 /HPF (0-5)
--- NOTE | 2017-01-27 08:25 | NUR ---
SHIFT REPORT PATIENT IS ALERT AND ORIENTED X3 THIS SHIFT. VITAL SIGNS HAVE BEEN STABLE ON ROOM AIR. PATIENT IS UP AT [facility]. PATIENT USING URINAL. UA COLLECTED AND SENT TO LAB THIS AM. PATIENT EXPECTED TO BE FIT FOR LIFE VEST THIS AM. CARE TRANSFERRED TO FIRST SHIFT RN. Addendum: 01/27/17 at 0830 by JIM BENAVIDEZ RN PATIENT REPORTED THAT SHORTNESS OF AIR WAS IMPROVING. HE DENIED ANY PAIN, NAUSEA, AND VOMITING.
[2017-01-27 08:44] VITALS: BP 140/89; PULSE 73; RESP 20; TEMP 96.7; O2SAT 99
--- NOTE | 2017-01-27 09:16 | DI ---
Indication: ITS.REASON: chf PROCEDURE: CHEST 1 VIEW: Encounter: Initial Comparison: January 25, 2017 Findings: Pulmonary edema has improved with decreasing pulmonary vascular congestion and perihilar interstitial prominence. No new infiltrates. Small pleural effusions. No pneumothorax. Heart size and mediastinal contours are stable. Impression: Improving congestive failure with minimal edema remaining. .
[2017-01-27] MEDS: POTASSIUM CHLORIDE 20 MEQ TABLET PO SCH ×3 (09:31→17:50)
[2017-01-27] MEDS: CARVEDILOL 6.25 MG TABLET PO SCH ×2 (09:31→17:49)
[2017-01-27] MEDS: ENOXAPARIN 40 MG/0.4 ML INJECTION SQ SCH (09:32)
[2017-01-27] MEDS: SPIRONOLACTONE 25 MG TABLET PO SCH (09:33)
--- NOTE | 2017-01-27 11:50 | PNPDOC ---
Subjective Date DATE: 01/27/17 TIME: 11:44 Subjective F/U: Acute systolic HF, Severe cardiomyopathy Doing better. Breathing easier-less SOA and congested. Still with dry cough. No chest pressure/pain. Not feeling dizzy or unsteady with positional changes. No nausea or ab discomfort. Stools stable. Urinating well. Objective Vital Signs Vital signs Vital Signs Date Time Temp Pulse Resp B/P Pulse Ox O2 Delivery O2 Flow Rate FiO2 01/27/17 08:44 96.7 73 20 140/89 99 Room Air Telemetry Rhythm: Sinus Rhythm Telemetry Ectopy: PVC Height (Feet): 5 Height (Inches): 9.00 Weight (Kilograms): 74.600 General General Appearance: Alert, Orientated x 3, Well Nourished, Well Developed, Cooperative, Looks Stated Age Eyes (Brief) Eyes: FOUND: EOMI, PERRL, NOT FOUND: scleral icterus ENMT (Brief) ENMT: FOUND: hearing intact, mucosa moist Neck (Brief) Neck: FOUND: midline, NOT FOUND: nuchal rigidity, spasm Respiratory (Brief) Respiratory: FOUND: clear all harper (Decreased bilaterally ), other (Cough with forced expriation ), NOT FOUND: rales, wheezes Cardiovascular (Brief) Cardiac: FOUND: regular rate, regular rhythm, NOT FOUND: pedal edema Abdomen (Brief) Abdominal: FOUND: BS normo active x4, soft, NOT FOUND: distended, tender Extremities (Brief) Extremity : Side: Bilateral Extremity: leg Extremity Finding: NOT FOUND: edema Musculoskeletal (Brief) Musculoskeletal: FOUND: extremities move equally, NOT FOUND: deformity, loss of motion, spasm, tenderness Integumentary (Brief) Integumentary: FOUND: dry, warm Neurologic (Brief) Neurological: FOUND: cranial 2-12 intact, motor (Intact ) Psychiatric (Brief) Psychiatric: FOUND: alert, attentive, normal affect, oriented Laboratory Laboratory Laboratory Tests 01/25/17 13:44 01/26/17 04:24 01/26/17 14:58 01/27/17 04:44 Laboratory Tests 01/25/17 13:44 01/26/17 04:24 01/27/17 04:44 Assessment & Plan Problems: (1) Systolic heart failure Status: Acute Qualifiers: Heart failure chronicity: acute Qualified Codes: I50.21 - Acute systolic ( congestive) heart failure Assessment & Plan: EF 15% (2) Cardiomyopathy Status: Acute Qualifiers: Cardiomyopathy type: unspecified Qualified Codes: I42.9 - Cardiomyopathy, unspecified (3) Pulmonary edema Status: Acute Qualifiers: Chronicity: acute Qualified Codes: J81.0 - Acute pulmonary edema (4) Cardiomegaly Status: Chronic (5) Uncontrolled hypertension Status: Acute Assessment & Plan: Present on admission (6) Hypernatremia Status: Resolved Assessment & Plan: POA (7) Hypokalemia Status: Acute Assessment & Plan: Present on admission (8) Elevated liver enzymes Status: Acute Assessment & Plan: ? passive liver congestion due to CHF (9) Stage III chronic kidney disease (10) Anemia Status: Acute Plan/Intensity of Service Being fitted for Life Vest. Continue Bumex for diuresis - cardiology decreased to 2mg IV q 8 hours yesterday - monitor for overdiuresis. Start Spironolactone 25mg daily due to hypokalemia and depressed EF. Entresto started BID by cardilolgy due to severe heart failure - lisinopril stopped due to ARB component. Cardiology increased Coreg 6.25mg BID. Encouraged sodium and fluid restriction - discussed with patient. Will have nursing provide CHF education information. Recheck CMP in am to monitor renal and electrolyte status. CBC in am due to anemia. Time spent with pt care 25 minutes, discussing HF and treatments. DVT Prophylaxis: Lovenox Code Status Full Code, unverified Hospital Course Summary Disclaimer The hospital course summary below is not to be considered part of the above Progress Note. Hospital Course Summary 01/25 Admit patient as a inpatient given new onset pulmonary edema with uncontrolled hypertension and cardiomegaly Will obtain the following laboratory studies on admission. CBC, CMP, magnesium, TSH, urinalysis, Iron and ferritin. will monitor patient on cardiac telemetry. Patient placed to Dr. Monroe for further cardiac evaluation and treatment. Will obtain an echocardiogram mission. Diet- sodium restricted 2 grams Will give Lasix 60 mg IV once on admission along with potassium 20 MEQ now. Then give additional 20 MEQ again at 1730. Resume hypertension medications including lisinopril, Coreg Monitor daily weights SCDs to Bilateral lower ext for DVT prophylaxis. Again, we did review advanced records and patient does wish to be a full code At time of discharge medical care will return to his primary care provider, Dr. Dey 01/26 Doing better. Breathing feels easier-less SOA. No chest pressure, pain, or palpitations. Not feeling dizzy or unsteady when up. Slept well at night. No nausea or ab pain. Eating well. No swelling to legs. Urinating well. Creatinine stable at 1.7. Urine output increasing with Bumex. Will continue Bumex 2mg IV q 6 hours - monitor for overdiuresis. Start Spironolactone 25mg daily due to hypokalemia and depressed EF. Entresto started BID by cardilolgy due to severe heart failure - lisinopril stopped due to ARB component. Continue with Coreg 3.125mg BID. Cardiology looking into Life Vest secondary to severely decreased EF. Recheck CMP in am to monitor renal and electrolyte status. CBC in am due to anemia. 01/27 Doing better. Breathing easier-less SOA and congested. Still with dry cough. No chest pressure/pain. Not feeling dizzy or unsteady with positional changes. No nausea or ab discomfort. Stools stable. Urinating well. Being fitted for Life Vest. Continue Bumex for diuresis - cardiology decreased to 2mg IV q 8 hours yesterday - monitor for overdiuresis. Start Spironolactone 25mg daily due to hypokalemia and depressed EF. Entresto started BID by cardilolgy due to severe heart failure - lisinopril stopped due to ARB component. Cardiology increased Coreg 6.25mg BID. Encouraged sodium and fluid restriction - discussed with patient. Will have nursing provide CHF education information. Recheck CMP in am to monitor renal and electrolyte status. CBC in am due to anemia. ROMELIA VASQUEZ MD January 27, 2017 11:47
[2017-01-27 12:33] VITALS: BP 115/77; PULSE 81; O2SAT 98
--- NOTE | 2017-01-27 12:50 | NUR ---
son at bedside and stated his dad isnt right. Pt doesnt know where he is why he is here asked what is wrong with him does recognize son doest remeber where he worked states he was dreaming but askes whrer he is over and over . vs taken and are stable Has life vest is on asks what it is for states let me go back to sleep and wake up i was dreaming. Dr Weir notified.
[2017-01-27 15:18] VITALS: BP 115/71; PULSE 80; RESP 18; TEMP 96.2; O2SAT 98
--- NOTE | 2017-01-27 18:56 | NUR ---
shift status Patient is now alert and orientated much better than eariler assement. Life vest is on was fitted for it today tlele is sr sl depressed t wave.
[2017-01-27 20:11] VITALS: BP 109/74; PULSE 84; RESP 20; TEMP 97.1; O2SAT 97
--- NOTE | 2017-01-27 22:10 | NUR ---
Shift note Pt. up ad golden in the room. Denies pain or needs at this time.
[2017-01-28] MEDS: BUMETANIDE 2.5mg INJECTION IV SCH ×2 (00:05→09:12)
[2017-01-28 00:14] VITALS: BP 111/72; PULSE 81; RESP 16; TEMP 96.5; O2SAT 97
[2017-01-28 01:43] LABS: IRON 42 UG/DL (49-181)
[2017-01-28 02:19] LABS: FERRITIN 121 NG/ML (18-464)
[2017-01-28 06:10] LABS: BASOPHILS % (AUTO) 0.7 % (0-2); EOSINOPHILS # (AUTO) 0.1 T/MM3 (0-0.5); EOSINOPHILS % (AUTO) 3.4 % (0-4); HCT - HEMATOCRIT 40.1 % (41-53); HGB - HEMOGLOBIN 13.8 GM/DL (13.5-17.5); LYMPHOCYTES # (AUTO) 1.9 T/MM3 (1-4.8); LYMPHOCYTES % (AUTO) 44.5 % (23-45); MEAN CORPUSCULAR HGB 25.6 UUG (26-34); MEAN CORPUSCULAR HGB CONC(MCHC 34.4 GM/DL (31-37); MEAN CORPUSCULAR VOLUME 74.3 UM3 (80-100); MEAN PLATELET VOLUME 11.9 UM3 (9.4-12.4); MONOCYTES # (AUTO) 0.6 T/MM3 (0-0.8); MONOCYTES % (AUTO) 14.4 % (0-9.0); NEUTROPHILS #(AUTO)-ABSOLUTE 1.5 T/MM3 (1.8-7.7); WBC - WHITE BLOOD COUNT 4.2 T/MM3 (4.5-11.0)
[2017-01-28 06:12] LABS: ALBUMIN 3.7 G/DL (3.5-5.0); ALBUMIN/GLOBULIN RATIO 1.4 RATIO (1.1-2.2); ALKALINE PHOSPHATASE 122 U/L (38-126); ALT (SGPT) 87 U/L (21-72); ANION GAP 12 MEQ/L (5-15); AST (SGOT) 34 U/L (17-59); BUN/CREATININE RATIO 14 RATIO (6-26); CALCIUM 8.8 MG/DL (8.4-10.2); CHLORIDE 102 MEQ/L (98-107); CO2 - CARBON DIOXIDE 30 MEQ/L (22-30); CREATININE 1.6 MG/DL (0.8-1.5); GLOMERULAR FILTRATION RATE 44; GLUCOSE 107 MG/DL (75-110); MAGNESIUM 2.1 MG/DL (1.6-2.3); SODIUM 144 MEQ/L (134-144); TOTAL PROTEIN 6.3 G/DL (6.3-8.2)
--- NOTE | 2017-01-28 06:14 | NUR ---
Shift Note Slept well overnight. Denies pain or needs at this time.
[2017-01-28 07:25] VITALS: BP 99/73; PULSE 80; RESP 16; TEMP 96.9; O2SAT 99
[2017-01-28] MEDS: ENOXAPARIN 40 MG/0.4 ML INJECTION SQ SCH (09:11)
[2017-01-28] MEDS: CARVEDILOL 6.25 MG TABLET PO SCH ×2 (09:12→16:25)
[2017-01-28] MEDS: SPIRONOLACTONE 25 MG TABLET PO SCH (09:12)
[2017-01-28] MEDS: POTASSIUM CHLORIDE 20 MEQ TABLET PO SCH ×3 (09:13→16:24)
--- NOTE | 2017-01-28 10:37 | DI ---
INDICATION: ITS.REASON: F/U Pulm edema PROCEDURE: CHEST 2-VIEWS UPRIGHT (PA \T\ LAT) Encounter: Initial COMPARISON: January 26, 2017 FINDINGS: The lungs are clear without evidence of focal abnormal airspace opacity. There is no pleural effusion or pneumothorax. Prior pulmonary edema has resolved. The heart size, mediastinal contours and pulmonary vascularity are within normal limits. IMPRESSION: No acute cardiopulmonary disease. .
--- NOTE | 2017-01-28 16:11 | NUR ---
status Pt A/O x3, V/S stable on RA. Pt ambulating well in room, denies SOA or dizziness. Eating well, remains on Na restricted diet plus fluid restriction, pt understands why. Life vest remains on, pt denies any shocks from vest, denies C.P. . Urine output good, no BM today.
--- NOTE | 2017-01-28 16:12 | PNPDOC ---
Subjective Date DATE: 01/28/17 TIME: 16:01 Subjective Pt doing well this am, denies any sob, n/v/d, f/c. Reports that he is getting a heart cath tomorrow. Objective Vital Signs Vital signs Vital Signs Date Time Temp Pulse Resp B/P Pulse Ox O2 Delivery O2 Flow Rate FiO2 01/28/17 07:25 96.9 80 16 99/73 99 Room Air Telemetry Rhythm: Sinus Rhythm Telemetry Ectopy: PVC Height (Feet): 5 Height (Inches): 9.00 Weight (Kilograms): 76.200 General General Appearance: Alert, Orientated x 3 Eyes (Brief) Eyes: FOUND: EOMI, PERRL ENMT (Brief) ENMT: FOUND: mucosa moist Neck (Brief) Neck: NOT FOUND: nuchal rigidity, tenderness Respiratory (Brief) Respiratory: FOUND: clear all harper, equal bilaterally, NOT FOUND: wheezes Cardiovascular (Brief) Cardiac: FOUND: regular rate, regular rhythm, NOT FOUND: murmur Abdomen (Brief) Abdominal: FOUND: soft, NOT FOUND: distended, tender Extremities (Brief) Extremity : Extremity Finding: NOT FOUND: clubbing, cyanosis, edema Integumentary (Brief) Integumentary: FOUND: dry, NOT FOUND: rash Laboratory Laboratory Laboratory Tests 01/27/17 04:44 01/28/17 05:14 Laboratory Tests 01/27/17 04:44 01/28/17 05:14 Assessment & Plan Problems: (1) Systolic heart failure Status: Acute Qualifiers: Heart failure chronicity: acute Qualified Codes: I50.21 - Acute systolic ( congestive) heart failure Assessment & Plan: EF 15% (2) Cardiomyopathy Status: Acute Qualifiers: Cardiomyopathy type: unspecified Qualified Codes: I42.9 - Cardiomyopathy, unspecified (3) Pulmonary edema Status: Acute Qualifiers: Chronicity: acute Qualified Codes: J81.0 - Acute pulmonary edema (4) Cardiomegaly Status: Chronic (5) Uncontrolled hypertension Status: Acute Assessment & Plan: Present on admission (6) Hypernatremia Status: Resolved Assessment & Plan: POA (7) Hypokalemia Status: Acute Assessment & Plan: Present on admission (8) Elevated liver enzymes Status: Acute Assessment & Plan: ? passive liver congestion due to CHF (9) Stage III chronic kidney disease (10) Anemia Status: Acute Assessment HFrEF -Ischemic disease vs. longstanding HTN -Echo shows 15% EF -On Entresto, carvedilol, bumex, spironolactone, life vest -Will start statin -Cards following, Cath tomorrow? HTN -Entresto, carvedilol -Monitor CKD/ELEANOR? -Cr 1.6, has been stable since admission -Likely CKD, UA showed proteinuria, will get renal sono Ppx -DVT-lovenox Plan/Intensity of Service Being fitted for Life Vest. Continue Bumex for diuresis - cardiology decreased to 2mg IV q 8 hours yesterday - monitor for overdiuresis. Start Spironolactone 25mg daily due to hypokalemia and depressed EF. Entresto started BID by cardilolgy due to severe heart failure - lisinopril stopped due to ARB component. Cardiology increased Coreg 6.25mg BID. Encouraged sodium and fluid restriction - discussed with patient. Will have nursing provide CHF education information. Recheck CMP in am to monitor renal and electrolyte status. CBC in am due to anemia. Time spent with pt care 25 minutes, discussing HF and treatments. Code Status Full Code, unverified Hospital Course Summary Disclaimer The hospital course summary below is not to be considered part of the above Progress Note. Hospital Course Summary 01/25 Admit patient as a inpatient given new onset pulmonary edema with uncontrolled hypertension and cardiomegaly Will obtain the following laboratory studies on admission. CBC, CMP, magnesium, TSH, urinalysis, Iron and ferritin. will monitor patient on cardiac telemetry. Patient placed to Dr. Monroe for further cardiac evaluation and treatment. Will obtain an echocardiogram mission. Diet- sodium restricted 2 grams Will give Lasix 60 mg IV once on admission along with potassium 20 MEQ now. Then give additional 20 MEQ again at 1730. Resume hypertension medications including lisinopril, Coreg Monitor daily weights SCDs to Bilateral lower ext for DVT prophylaxis. Again, we did review advanced records and patient does wish to be a full code At time of discharge medical care will return to his primary care provider, Dr. Dey 01/26 Doing better. Breathing feels easier-less SOA. No chest pressure, pain, or palpitations. Not feeling dizzy or unsteady when up. Slept well at night. No nausea or ab pain. Eating well. No swelling to legs. Urinating well. Creatinine stable at 1.7. Urine output increasing with Bumex. Will continue Bumex 2mg IV q 6 hours - monitor for overdiuresis. Start Spironolactone 25mg daily due to hypokalemia and depressed EF. Entresto started BID by cardilolgy due to severe heart failure - lisinopril stopped due to ARB component. Continue with Coreg 3.125mg BID. Cardiology looking into Life Vest secondary to severely decreased EF. Recheck CMP in am to monitor renal and electrolyte status. CBC in am due to anemia. 01/27 Doing better. Breathing easier-less SOA and congested. Still with dry cough. No chest pressure/pain. Not feeling dizzy or unsteady with positional changes. No nausea or ab discomfort. Stools stable. Urinating well. Being fitted for Life Vest. Continue Bumex for diuresis - cardiology decreased to 2mg IV q 8 hours yesterday - monitor for overdiuresis. Start Spironolactone 25mg daily due to hypokalemia and depressed EF. Entresto started BID by cardilolgy due to severe heart failure - lisinopril stopped due to ARB component. Cardiology increased Coreg 6.25mg BID. Encouraged sodium and fluid restriction - discussed with patient. Will have nursing provide CHF education information. Recheck CMP in am to monitor renal and electrolyte status. CBC in am due to anemia. 01/28 Pt doing well, maximizing CHF meds, pt reports heart cath is planned for tomorrow. FLY JO MD January 28, 2017 16:11
[2017-01-28 16:20] VITALS: BP 109/71; PULSE 76; RESP 16; TEMP 96.3; O2SAT 100
[2017-01-28] MEDS: BUMETANIDE 1 MG TABLET PO SCH (16:24)
[2017-01-28 16:30] VITALS: PULSE 76
--- NOTE | 2017-01-28 17:58 | NUR ---
SUMMARY Pt alert and oriented x3. Nurse reported stable vital signs on RA. Pt ambulating well in room. Pt denied SOA or dizziness. Eating well and on Na restricted diet plus fluid restriction. Pt is a very nice person. Pt wears a life vest. Call light within reach.
--- NOTE | 2017-01-28 21:30 | NUR ---
comfort watches TV most of evening. Denies pain, ambulates in room with good balance
[2017-01-28] MEDS ORDERED: ATORVASTATIN 40 MG TABLET PO SCH (22:00)
[2017-01-29] VITALS: BP 115/69; PULSE 71; RESP 16; TEMP 97.3; O2SAT 100
[2017-01-29 01:48] LABS: LDL CHOLESTEROL,CALCULATED 64.4 (66-159); RISK FACTOR 2.3 RATIO (0-5.0); VLDL CHOLESTEROL 15.6 MG/DL (0-28)
--- NOTE | 2017-01-29 06:15 | NUR ---
rest sleeps for long intervals, resp. unlabored. Repositions self for comfort. NPO tonight for testing
[2017-01-29 07:17] VITALS: BP 123/81; PULSE 81; RESP 16; TEMP 97.3; O2SAT 97
[2017-01-29 08:00] VITALS: PULSE 81
[2017-01-29] MEDS: ENOXAPARIN 40 MG/0.4 ML INJECTION SQ SCH (08:07)
[2017-01-29] MEDS: CARVEDILOL 6.25 MG TABLET PO SCH (08:07)
[2017-01-29] MEDS: BUMETANIDE 1 MG TABLET PO SCH (08:08)
[2017-01-29] MEDS: POTASSIUM CHLORIDE 20 MEQ TABLET PO SCH ×2 (08:08→12:10)
[2017-01-29] MEDS: SPIRONOLACTONE 25 MG TABLET PO SCH (08:09)
[2017-01-29 08:39] LABS: ALBUMIN 3.7 G/DL (3.5-5.0); ANION GAP 12 MEQ/L (5-15); BUN/CREATININE RATIO 16 RATIO (6-26); CALCIUM 9.2 MG/DL (8.4-10.2); CHLORIDE 103 MEQ/L (98-107); CO2 - CARBON DIOXIDE 29 MEQ/L (22-30); CREATININE 1.5 MG/DL (0.8-1.5); GLOMERULAR FILTRATION RATE 48; GLUCOSE 110 MG/DL (75-110); POTASSIUM 4.5 MEQ/L (3.6-5); SODIUM 144 MEQ/L (134-144)
[2017-01-29 09:06] LABS: PHOSPHORUS 3.6 MG/DL (2.5-4.5)
--- NOTE | 2017-01-29 10:25 | NUR ---
MNT r/t low Na, Cardiac diet Diet: 2 g Na Pt states that he likes to eat salty food: fried potatoes, chips and fast food. Rd gave rationale for avoiding high sodium foods and gave list of high-sodium foods (ADA). Reviewed low-sodium, heart healthy food options. Pt states that he does not like other seasonings (i.e. onion, hot peppers, herbs) so RD suggested that he learn to cook w/o added salt. Encouraged increased intake a fresh fruits & vegetables and dairy and eating only snack bag of chips for lunch.
--- NOTE | 2017-01-29 11:25 | DI ---
Indication: ITS.REASON: Acute kidney injury versus chronic kidney disease PROCEDURE: US RENAL: Encounter: Initial Comparison: None Technique: Grayscale and color Doppler sonographic imaging of both kidneys was performed. FINDINGS: Both kidneys are present with normal cortical thickness and echogenicity. No evidence for collecting system dilatation, contour deforming mass, nephrolithiasis, or abnormal perinephric fluid collection. The right kidney measures 10.1 cm in length, and the left kidney measures 10 cm in length. IMPRESSION: Normal renal sonogram. .
--- NOTE | 2017-01-29 13:31 | PNPDOC ---
Subjective Date DATE: 01/29/17 TIME: 13:15 Yusra Pathak is seen in his room, sitting up in the chair. He is eager to go home. Plan to do outpatient heart cath in 3 weeks. He states his breathing is markedly improved and denies chest pain or pressure. He wears his Life Vest. Objective Vital Signs Vital signs Vital Signs 01/29/17 01/29/17 07:17 08:00 Temp 97.3 Pulse 81 81 Resp 16 B/P 123/81 Pulse Ox 97 O2 Delivery Room Air Telemetry Rhythm: Sinus Rhythm Telemetry Ectopy: PVC Height (Feet): 5 Height (Inches): 9.00 Weight (Kilograms): 76.300 General Alert, Orientated x 3, Cooperative, No Acute Distress ENMT (Brief) mucosa moist Neck (Brief) NOT FOUND: JVD, carotid bruits Respiratory (Brief) clear all harper, equal bilaterally, NOT FOUND: rales, wheezes Cardiovascular (Brief) regular rate, regular rhythm, NOT FOUND: click, gallop, murmur, pedal edema, rub Abdomen (Brief) BS normo active x4, soft, NOT FOUND: tender Integumentary (Brief) dry, warm Psychiatric (Brief) alert, attentive, normal affect, oriented Laboratory Laboratory Laboratory Tests Test 01/28/17 05:14 01/29/17 08:01 White Blood Count 4.2T/MM3 Red Blood Count 5.40M/MM3 Hemoglobin 13.8GM/DL Hematocrit 40.1% Mean Corpuscular Volume 74.3UM3 Mean Corpuscular Hemoglobin 25.6UUG Mean Corpuscular Hemoglobin Concent 34.4GM/DL RDW Standard Deviation 39.3FL Platelet Count 308T/MM3 Mean Platelet Volume 11.9UM3 Immature Granulocyte % (Auto) 0.0% Neutrophils (%) (Auto) 37.0% Lymphocytes (%) (Auto) 44.5% Monocytes (%) (Auto) 14.4% Eosinophils (%) (Auto) 3.4% Basophils (%) (Auto) 0.7% Absolute Immature Granulocyte (auto 0.00T/MM3 Absolute Neutrophils (auto) 1.5T/MM3 Absolute Lymphocytes (auto) 1.9T/MM3 Absolute Monocytes (auto) 0.6T/MM3 Absolute Eosinophils (auto) 0.1T/MM3 Absolute Basophils (auto) 0.0T/MM3 Turbidity < 20 < 20 Sodium Level 144MEQ/L 144MEQ/L Potassium Level 4.0MEQ/L 4.5MEQ/L Chloride Level 102MEQ/L 103MEQ/L Carbon Dioxide Level 30MEQ/L 29MEQ/L Anion Gap 12MEQ/L 12MEQ/L Blood Urea Nitrogen 23.0MG/DL 24.0MG/DL Creatinine 1.6MG/DL 1.5MG/DL Glomerular Filtration Rate Calc 44 48 BUN/Creatinine Ratio 14RATIO 16RATIO Glucose Level 107MG/DL 110MG/DL Calculated Osmolality 281MOSM/KG 282MOSM/KG Calcium Level 8.8MG/DL 9.2MG/DL Magnesium Level 2.1MG/DL Total Bilirubin 0.70MG/DL Icterus Index < 2 < 2 Aspartate Amino Transf (AST/SGOT) 34U/L Alanine Aminotransferase (ALT/SGPT) 87U/L Alkaline Phosphatase 122U/L Total Creatine Kinase 67U/L Total Protein 6.3G/DL Albumin 3.7G/DL 3.7G/DL Globulin 2.6G/DL Albumin/Globulin Ratio 1.4RATIO Chemistry Specimen Hemolysis < 15 18 Phosphorus Level 3.6MG/DL Laboratory Tests 01/29/17 08:01 Medications Current Medications Lisinopril (Prinivil) 5 mg HS PO ; Start 01/25/17 at 22:00; Stop 01/25/17 at 22: 00; Status DC Miscellaneous Medication (May use PRN orders) PRN PRN MC ; Start 01/25/17 at 16:15 Magnesium Hydroxide (Mom) 30 ml DAILY PRN PO CONSTIPATION; Start 01/25/17 at 16 :15 Bisacodyl (Dulcolax) 10 mg DAILY PRN RECTALLY CONSTIPATION; Start 01/25/17 at 16:15 Al Hydroxide/Mg Hydroxide (Maalox) 30 ml Q3H PRN PO INDIGESTION; Start at 16:15 Acetaminophen (Tylenol Regular Strength) 1-2 TABS PO Q5H PRN PO DISCOMFORT; Start 01/25/17 at 16:15 Nitroglycerin (Nitrostat) 0.4 mg Q5M PRN SL CHEST PAIN; Start 01/25/17 at 16:15 Ondansetron HCl (Zofran) 4 mg Q6H PRN IV NAUSEA; Start 01/25/17 at 16:15 Furosemide (Lasix) 40 mg BID. IV ; Start 01/26/17 at 09:00; Stop 01/26/17 at 09: 00; Status DC Sacubitril/ Valsartan (ENTRESTO 24mg/ 26mg) 1 tab BID PO Last administered on 08:08; Start 01/25/17 at 21:00 Bumetanide (BUMEX INJ 1 mg/ 4 ml) 2 mg Q6H IV Last administered on 01/26/17 03 :47; Start 01/25/17 at 21:00; Stop 01/26/17 at 08:41; Status DC Enoxaparin Sodium (Lovenox) 40 mg DAILY SQ Last administered on 01/29/17 08:07 ; Start 01/25/17 at 17:45 Spironolactone (Aldactone) 25 mg DAILY PO Last administered on 01/29/17 08:09 ; Start 01/26/17 at 11:00 Bumetanide (Bumex Inj. 2.5 Mg/10 ml) 2 mg Q8H IV Last administered on 09:12; Start 01/26/17 at 17:00; Stop 01/28/17 at 15:07; Status DC Potassium Chloride (Kdur) 20 meq O ONCE PO Last administered on 01/26/17 18: 26; Start 01/26/17 at 18:30; Stop 01/27/17 at 06:11; Status DC Carvedilol (Coreg) 3.125 mg O ONCE PO Last administered on 01/26/17 18:49; Start 01/26/17 at 18:45; Stop 01/27/17 at 06:11; Status DC Bumetanide (BUMEX 1 mg TAB) 2 mg BID. PO Last administered on 01/29/17 08:08; Start 01/28/17 at 17:00 Atorvastatin Calcium (LIPITOR 40 mg) 40 mg HS PO Last administered on 21:00; Start 01/28/17 at 22:00 Radiology DATE OF EXAM: 01/29/17 ORDERING DOCTOR: FLY JO MD TYPE OF EXAM: US RENAL REASON FOR EXAM: ferdinand vs. ckd Indication: ITS.REASON: Acute kidney injury versus chronic kidney disease PROCEDURE: US RENAL: Encounter: Initial Comparison: None Technique: Grayscale and color Doppler sonographic imaging of both kidneys was performed. FINDINGS: Both kidneys are present with normal cortical thickness and echogenicity. No evidence for collecting system dilatation, contour deforming mass, nephrolithiasis, or abnormal perinephric fluid collection. The right kidney measures 10.1 cm in length, and the left kidney measures 10 cm in length. IMPRESSION: Normal renal sonogram Assessment & Plan Problems: (1) Cardiomyopathy Status: Acute Qualifiers: Cardiomyopathy type: unspecified Qualified Codes: I42.9 - Cardiomyopathy, unspecified Assessment & Plan: EF 15% per echo, moderate to severe MR and TR. Needs diuresis and LifeVest. (2) Pulmonary edema Status: Acute Qualifiers: Chronicity: acute Qualified Codes: J81.0 - Acute pulmonary edema Assessment & Plan: Agree with diuresis. Bumex 2mg IV Q6H. (3) Uncontrolled hypertension Status: Acute Assessment & Plan: Agree with BB, Change Lisinopril to Entresto. (4) Cardiomegaly Status: Chronic Assessment & Plan: EF 15% per echo, moderate to severe MR and TR. Needs diuresis and LifeVest. Plan/Intensity of Service Pulm.edema: Agree with diuresis. Bumex 2mg IV Q6H. HTN:Agree with BB, Change Lisinopril to Entresto. Cardiomegaly/ Cardiomyopathy: EF 15% per echo, moderate to severe MR and TR. Needs diuresis and LifeVest. 01-26-17 States he is breathing better. CXR ordered. Continue IV bumex. 01/29/17 Plan outpatient heart cath on 02/19 after hospital follow up with Dr. Monroe on 02/12/17. Patient was given samples of Entresto and discount card for a free 30 supply to follow that. Thank you for allowing us to participate in the care of this patient. MICHAEL BRICEÑO APRN January 29, 2017 13:19
[2017-01-29] MEDS ORDERED: POTA20TA10 PO (13:45)
[2017-01-29] MEDS ORDERED: ASPI-557 PO (13:45)
[2017-01-29] MEDS ORDERED: CARV6.25 PO (13:45)
[2017-01-29] MEDS ORDERED: SACU1TAB PO (13:45)
[2017-01-29] MEDS ORDERED: SPIR25TA PO (13:45)
[2017-01-29] MEDS ORDERED: BUME1TAB17 PO (13:45)
[2017-01-29] MEDS ORDERED: ATOR40TA PO (13:45)
--- NOTE | 2017-01-29 15:00 | NUR ---
DISMISSAL PT GIVEN DISMISSAL INSTRUCTIONS WELL PRESCRIPTIONS, PT VERBALIZES UNDERSTANDING. PT'S IV DC'D, 2X2 AND TAPE PLACED ON IV SITE. NO REDNESS/EDEMA NOTED. PT IS ABLE TO WALK TO HIS CAR WHILE ACCOMPANIED BY THIS RN.
--- NOTE | 2017-01-29 17:04 | DSPDOC ---
General Date Date DATE: 01/29/17 TIME: 16:52 Attending Physician Hiral Jo MD Admitting Physician Santhosh Weir MD Consulting Physician Miles Monroe MD Admitting Diagnosis Pulmonary edema Discharge Diagnosis HFrEF Laboratory Laboratory Tests Test 01/28/17 05:14 01/29/17 08:01 White Blood Count 4.2T/MM3 (4.5-11.0) Red Blood Count 5.40M/MM3 (4.50-5.90) Hemoglobin 13.8GM/DL (13.5-17.5) Hematocrit 40.1% (41-53) Mean Corpuscular Volume 74.3UM3 (80-100) Mean Corpuscular Hemoglobin 25.6UUG (26-34) Mean Corpuscular Hemoglobin Concent 34.4GM/DL (31-37) RDW Standard Deviation 39.3FL (36.9-50.2) Platelet Count 308T/MM3 (130-400) Mean Platelet Volume 11.9UM3 (9.4-12.4) Immature Granulocyte % (Auto) 0.0% (0.0-0.5) Neutrophils (%) (Auto) 37.0% (33-66) Lymphocytes (%) (Auto) 44.5% (23-45) Monocytes (%) (Auto) 14.4% (0-9.0) Eosinophils (%) (Auto) 3.4% (0-4) Basophils (%) (Auto) 0.7% (0-2) Absolute Immature Granulocyte (auto 0.00T/MM3 (0.00-0.03) Absolute Neutrophils (auto) 1.5T/MM3 (1.8-7.7) Absolute Lymphocytes (auto) 1.9T/MM3 (1-4.8) Absolute Monocytes (auto) 0.6T/MM3 (0-0.8) Absolute Eosinophils (auto) 0.1T/MM3 (0-0.5) Absolute Basophils (auto) 0.0T/MM3 (0-0.2) Turbidity < 20 (0-20) < 20 (0-20) Sodium Level 144MEQ/L (134-144) 144MEQ/L (134-144) Potassium Level 4.0MEQ/L (3.6-5) 4.5MEQ/L (3.6-5) Chloride Level 102MEQ/L (98-107) 103MEQ/L (98-107) Carbon Dioxide Level 30MEQ/L (22-30) 29MEQ/L (22-30) Anion Gap 12MEQ/L (5-15) 12MEQ/L (5-15) Blood Urea Nitrogen 23.0MG/DL (9-20) 24.0MG/DL (9-20) Creatinine 1.6MG/DL (0.8-1.5) 1.5MG/DL (0.8-1.5) Glomerular Filtration Rate Calc 44 48 BUN/Creatinine Ratio 14RATIO (6-26) 16RATIO (6-26) Glucose Level 107MG/DL (75-110) 110MG/DL (75-110) Calculated Osmolality 281MOSM/KG (261-280) 282MOSM/KG (261-280) Calcium Level 8.8MG/DL (8.4-10.2) 9.2MG/DL (8.4-10.2) Magnesium Level 2.1MG/DL (1.6-2.3) Total Bilirubin 0.70MG/DL (0.20-1.30) Icterus Index < 2 (0-7) < 2 (0-7) Aspartate Amino Transf (AST/SGOT) 34U/L (17-59) Alanine Aminotransferase (ALT/SGPT) 87U/L (21-72) Alkaline Phosphatase 122U/L (38-126) Total Creatine Kinase 67U/L (55-170) Total Protein 6.3G/DL (6.3-8.2) Albumin 3.7G/DL (3.5-5.0) 3.7G/DL (3.5-5.0) Globulin 2.6G/DL (2.4-3.6) Albumin/Globulin Ratio 1.4RATIO (1.1-2.2) Chemistry Specimen Hemolysis < 15 (0-25) 18 (0-25) Phosphorus Level 3.6MG/DL (2.5-4.5) History of Present Illness Mr Dunlap is a 61 yr old gentleman who has been having increased shortness of breath since the middle of December. He had been seen by primary care provider on December 17 and completed a full course of Augmentin for upper respiratory infection. However, symptoms have not improved. He presented back to see his primary care provider, Dr. Dey today reporting increased shortness of breath , especially with lying down. As report increased coughing and wheezing at intermittently. Patient has a history of hypertension and was present previously taking hydrochlorothiazide, Norvasc and metoprolol. However, he reports he has not taken any of these medications recently. Outpatient laboratory studies were obtained including troponin of 0.017, proBNP 8010. A chest x-ray was obtained that did reveal moderate pulmonary edema and cardiomegaly. Given these findings, accompanied with his symptoms and uncontrolled hypertension. The hospitalist services were contacted and accepted patient for direct admission as an inpatient for further evaluation and treatment. He is alert, orientated and pleasant during initial examination. He admits to increased shortness of breath for a month . It is progressively getting worse, especially at night. 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 We did discuss advance directives and he does wish to be a Full Code Hospital Course 01/25 Admit patient as a inpatient given new onset pulmonary edema with uncontrolled hypertension and cardiomegaly Will obtain the following laboratory studies on admission. CBC, CMP, magnesium, TSH, urinalysis, Iron and ferritin. will monitor patient on cardiac telemetry. Patient placed to Dr. Monroe for further cardiac evaluation and treatment. Will obtain an echocardiogram mission Diet- sodium restricted 2 grams Will give Lasix 60 mg IV once on admission along with potassium 20 MEQ now. Then give additional 20 MEQ again at 1730. Resume hypertension medications including lisinopril, Coreg Monitor daily weights SCDs to Bilateral lower ext for DVT prophylaxis. Again, we did review advanced records and patient does wish to be a full code At time of discharge medical care will return to his primary care provider, Dr. Dey 01/26 Doing better. Breathing feels easier-less SOA. No chest pressure, pain, or palpitations. Not feeling dizzy or unsteady when up. Slept well at night. No nausea or ab pain. Eating well. No swelling to legs. Urinating well. Creatinine stable at 1.7. Urine output increasing with Bumex. Will continue Bumex 2mg IV q 6 hours - monitor for overdiuresis. Start Spironolactone 25mg daily due to hypokalemia and depressed EF. Entresto started BID by cardilolgy due to severe heart failure - lisinopril stopped due to ARB component. Continue with Coreg 3.125mg BID. Cardiology looking into Life Vest secondary to severely decreased EF. Recheck CMP in am to monitor renal and electrolyte status. CBC in am due to anemia. 01/27 Doing better. Breathing easier-less SOA and congested. Still with dry cough. No chest pressure/pain. Not feeling dizzy or unsteady with positional changes. No nausea or ab discomfort. Stools stable. Urinating well. Being fitted for Life Vest. Continue Bumex for diuresis - cardiology decreased to 2mg IV q 8 hours yesterday - monitor for overdiuresis. Start Spironolactone 25mg daily due to hypokalemia and depressed EF. Entresto started BID by cardilolgy due to severe heart failure - lisinopril stopped due to ARB component. Cardiology increased Coreg 6.25mg BID. Encouraged sodium and fluid restriction - discussed with patient. Will have nursing provide CHF education information. Recheck CMP in am to monitor renal and electrolyte status. CBC in am due to anemia. 01/28 Pt doing well, maximizing CHF meds, pt reports heart cath is planned for tomorrow. Problems: (1) Systolic heart failure Status: Acute Assessment & Plan: EF 15% (2) Cardiomyopathy Status: Acute (3) Pulmonary edema Status: Acute (4) Cardiomegaly Status: Chronic (5) Uncontrolled hypertension Status: Acute Assessment & Plan: Present on admission (6) Hypernatremia Status: Resolved Assessment & Plan: POA (7) Hypokalemia Status: Acute Assessment & Plan: Present on admission (8) Elevated liver enzymes Status: Acute Assessment & Plan: ? passive liver congestion due to CHF (9) Stage III chronic kidney disease (10) Anemia Status: Acute Code Status Full Code, unverified Home Meds Active Scripts Aspirin (Aspir 81) 81 Mg Tablet., 1 TAB PO DAILY, #30 TAB 5 Refills Prov:HIRAL JO MD 01/29/17 Potassium Chloride (Klor-Con M20) 20 Meq Tablet, 20 MEQ PO DAILY, #14 TAB Prov:HIRAL JO MD 01/29/17 Bumetanide (Bumetanide) 1 Mg Tablet, 2 MG PO BID. for 30 Days, #120 TAB Prov:HIRAL JO MD 01/29/17 Spironolactone (Aldactone) 25 Mg Tablet, 25 MG PO DAILY for 30 Days, #30 TAB Prov:HIRAL JO MD 01/29/17 Sacubitril/Valsartan (Entresto 24 mg-26 mg Tablet) 1 Each Tablet, 1 TAB PO BID for 30 Days, #60 TAB Prov:HIRAL JO MD 01/29/17 Carvedilol (Coreg) 6.25 Mg Tablet, 6.25 MG PO BIDWM for 30 Days, #60 TAB Prov:HIRAL JO MD 01/29/17 Atorvastatin Calcium (Lipitor) 40 Mg Tablet, 40 MG PO HS for 30 Days, #30 TAB Prov:HIRAL JO MD 01/29/17 Face to Face Encounter I met with patient on the day of dismissal and discussed follow up appointments , medications, and safety plan. Discharge Disposition was admitted for sob and pulmonary edema and was found to have HFrEF with EF 15%. Pt was treated medically and his medications were maximized. Medications on discharge included Entresto, Carvedilol, Atorvastatin, Bumex, ASA , Spironolactone and potassium supplements. Pt was taking 60 meq K daily in the hospital but with continued spirolactone use and decrease of bumex dose, pt was sent home on 20 meq K daily. Renal panel was ordered on 01/31 to monitor K and results would be followed up by PCP. requested pt have his heart cath done as outpatient. Pt was counseled on monitoring fluid intake and sodium restriction. Pt was also instructed to do daily weights and to notify pcp or cardiology if weights go up. Discharge plan: -F/u with cardiology and heart cath scheduled as outpatient -Renal panel on 01/31 for potassium check, results to be followed up by pcp HIRAL JO MD January 29, 2017 16:57
== END 2017-01-29 15:00 | disposition home or self-care (01) | DRG 291 ==
LOC: MED 13:16
PROVIDERS: ADMIT Hospitalist; ATTEND Hospitalist
DX: I13.0 Hypertensive heart and chronic kidney disease with heart failure and stage 1 through stage 4 chronic kidney disease, or unspecified chronic kidney disease (principal); I50.21 Acute systolic (congestive) heart failure; E87.0 Hyperosmolality and hypernatremia; N18.3 Chronic kidney disease, stage 3 (moderate); I42.9 Cardiomyopathy, unspecified; I51.7 Cardiomegaly; E87.6 Hypokalemia; D64.9 Anemia, unspecified; R74.8 Abnormal levels of other serum enzymes
CPT/HCPCS: 36415; 80048; 80053; 80061; 80069; 81001; 82550; 82728; 83036; 83540; 83735; 84443; 84484; 85025; 93005; 93306

== ENCOUNTER → 2017-01-25 | Outpatient (CLI) | payer BC ==
[~2017-01-25] MED LIST: ASPI-557 PO; ATOR40TA PO; BUME1TAB17 PO; CARV6.25 PO; POTA20TA10 PO; SACU1TAB PO; SPIR25TA PO
[2017-01-25 12:10] LABS: PROBNP 8010 PG/ML (0-175)
== END ==
LOC: LABN 11:46
PROVIDERS: ATTEND Family Medicine
DX: I51.7 Cardiomegaly (principal); R06.00 Dyspnea, unspecified; I10 Essential (primary) hypertension
CPT/HCPCS: 83880; 84484